=== PATIENT | female | born 1975 | race Hispanic/Latino ===

== ENCOUNTER 2021-08-24 11:33 | Emergency (ER) | payer BC, OTHER ==
[~2021-08-24] VITALS: Ht 157.5 cm; Wt 73.5 kg
[2021-08-24 11:35] VITALS: BP 124/67
[2021-08-24] MEDS ORDERED: DIAZEPAM 5 MG TABLET PO ONE (12:00)
[2021-08-24] MEDS ORDERED: KETOROLAC 60 MG VIAL (30MG/ML) IM ONE (12:00)
[2021-08-24] MEDS ORDERED: HYDROCODONE/ACETAMINOPHEN 10/325 MG TAB PO ONE (12:00)
[2021-08-24 12:31] LABS: APPEARANCE,URINE Clear (CLEAR); BILIRUBIN,URINE Negative (NEGATIVE); COLOR,URINE Yellow (YELLOW); GLUCOSE, URINE (UA) Negative (NEGATIVE); KETONES,URINE Negative (NEGATIVE); LEUKOCYTE ESTERASE ,URINE Moderate (NEGATIVE); NITRATE,URINE Negative (NEGATIVE); OCCULT BLOOD,URINE Negative (NEGATIVE); PROTEIN,URINE Negative (NEGATIVE); UROBILINOGEN,URINE 0.2 mg/dL (0.2-1.0)
[2021-08-24 13:13] LABS: BACTERIA,URINE Rare /HPF (None Seen); SQUAMOUS EPITHELIAL CELL,UR Rare /HPF (0-2)
[2021-08-24 13:14] LABS: RBC,URINE None Seen /HPF (0-1)
[2021-08-24] MEDS ORDERED: CEFTRIAXONE 1G VIAL IM ONE (13:30)
[2021-08-24] MEDS ORDERED: FENTANYL 75 MCG/HR PATCH TD SCH (13:30)
[2021-08-24] MEDS ORDERED: KETO30I IM (13:32)
[2021-08-24] MEDS ORDERED: CEPH500B PO (13:32)
[2021-08-24] MEDS ORDERED: FLUC150T PO (13:32)
[2021-08-24] MEDS ORDERED: LIDOCAINE HCL-MPF 1% 2ML VIAL ONE (13:51)
[2021-08-24] MEDS ORDERED: KETO10 PO (14:55)
[2021-08-29] MEDS ORDERED: CYCL10TA7 PO (10:03)
[2021-08-29] MEDS ORDERED: LEVO75CA5 PO (10:03)
[2021-08-29] MEDS ORDERED: KETO10 PO (10:03)
[2021-08-29] MEDS ORDERED: CEPH500B PO (10:03)
[2021-08-29] MEDS ORDERED: SPIR25TA6 PO (10:03)
== END 2021-08-24 15:42 | disposition home or self-care (01) ==
LOC: EDH 11:33
DX: N39.0 Urinary tract infection, site not specified (principal); N83.209 Unspecified ovarian cyst, unspecified side; Z79.1 Long term (current) use of non-steroidal anti-inflammatories (NSAID); Z88.8 Allergy status to other drugs, medicaments and biological substances; Z90.710 Acquired absence of both cervix and uterus
CPT/HCPCS: 72131; 81001; 87088; 96372 ×2; 99284; J0696; J1885; J3490

== ENCOUNTER 2021-09-01 06:59 | Day surgery (SDC) | payer OTHER ==
[2021-08-28 10:37] LABS: BASOPHILS % (AUTO) 0.6 % (0.0-5.0); HEMATOCRIT 44.7 % (36-48); LYMPHOCYTES % (AUTO) 36.1 % (21.0-51.0); MEAN CORPUSCULAR HEMOGLOBIN 28.3 pg (27.0-33.0); MEAN CORPUSCULAR HGB CONC 31.3 g/dL (32.0-36.0); MEAN CORPUSCULAR VOLUME 90.3 fL (79-99); MONOCYTES % (AUTO) 6.7 % (3.0-13.0); NEUTROPHILS % (AUTO) 53.7 % (40.0-77.0); PLATELET COUNT (AUTO) 275 K/uL (130-400); RED BLOOD CELL COUNT(AUTO) 4.95 MIL/uL (4.00-5.50); RED CELL DISTRIBUTION WIDTH 13.7 % (11.0-15.5); WHITE BLOOD COUNT (AUTO) 11.7 K/uL (4.8-10.8)
[2021-08-29 09:35] VITALS: BP 96/62
[2021-09-01] VITALS (20 sets, daily range): BP systolic 97–121; BP diastolic 53–74
[~2021-09-01] VITALS: Ht 157.5 cm; Wt 74.6 kg
[~2021-09-01 06:59] MED LIST: CALDOLOR 800MG+NS 250ML 250 ML IV SCH; CEPH500B PO; CYCL-309 PO; KETO10 PO; LACTATED RINGERS 1000ML 1,000 ML IV SCH; LEVO75CA5 PO; SPIR25TA6 PO
[2021-09-01] MEDS ORDERED: LIDOCAINE PF 100MG/5ML (2%) SYRINGE 5ML ONE (07:43)
[2021-09-01] MEDS ORDERED: MIDAZOLAM HCL 1 MG/ML 2ML VIAL ONE (07:44)
[2021-09-01] MEDS ORDERED: ONDANSETRON 4MG INJ ONE (07:44)
[2021-09-01] MEDS ORDERED: PROPOFOL 10 MG/ML 20ML VIAL IV ONE (07:45)
[2021-09-01] MEDS ORDERED: FENTANYL CITRATE PF 50 MCG/1 ML 2ML VIAL ONE ×2 (07:45→09:50)
[2021-09-01] MEDS ORDERED: ROCURONIUM 10MG/1ML SYR 10 MG/ML ML ONE (07:45)
[2021-09-01] MEDS: CEFAZOLIN SODIUM 1 GM VIAL IVP SCH ×2 (08:17→08:38)
[2021-09-01] MEDS ORDERED: BUPIVACAINE/PF 0.25% 30ML VIAL IJ ONE (09:06)
[2021-09-01] MEDS ORDERED: MEPERIDINE-PF 25 MG/ML SYG ONE ×2 (09:24→11:15)
[2021-09-01] MEDS ORDERED: DEXAMETHASONE SOD PHOSPHATE 4 MG/ML 1ML VIAL ONE (09:56)
[2021-09-01] MEDS ORDERED: NEOSTIGMINE 5MG/5ML SYR IV ONE (10:23)
[2021-09-01] MEDS ORDERED: GLYCOPYRROLATE 1 MG/5 ML SYRINGE ONE (10:23)
== END 2021-09-01 12:35 | disposition home or self-care (01) ==
LOC: DAH 06:59
PROVIDERS: ATTEND Obstetrics & Gynecology
DX: N83.11 Corpus luteum cyst of right ovary (principal); Z20.822 Contact with and (suspected) exposure to COVID-19; N73.6 Female pelvic peritoneal adhesions (postinfective); N94.89 Other specified conditions associated with female genital organs and menstrual cycle; N80.1 Endometriosis of ovary; Z88.3 Allergy status to other anti-infective agents; Z80.6 Family history of leukemia; Z80.41 Family history of malignant neoplasm of ovary; Z80.42 Family history of malignant neoplasm of prostate; Z80.0 Family history of malignant neoplasm of digestive organs; Z79.899 Other long term (current) drug therapy
CPT/HCPCS: 36415 ×2; 58661; 85025; 86850 ×2; 86900 ×2; 86901 ×2; 87635; A4215; A4221; A4222; A4223; A4344; A4510; A4600; A4649 ×3; A4663; A4930; A6260; C1769 ×2; C9803; J0690; J1100; J1741; J2001; J2175 ×2; J2250; J2405; J2704; J2710; J3010 ×2; J3490 ×2; J7030; J7120 ×2

== ENCOUNTER → 2023-11-10 | Outpatient (CLI) | payer OTHER ==
[~2023-11-10] MED LIST changes: -CALDOLOR 800MG+NS 250ML 250 ML IV SCH; +CEFU500T67 PO; +GADOTERATE MEGLUMINE 10 MMOL/20 ML VIAL IV ONE; -LACTATED RINGERS 1000ML 1,000 ML IV SCH; +ONDA22I PO
== END | disposition home or self-care (01) ==
LOC: RAH 07:55
PROVIDERS: ATTEND Obstetrics & Gynecology
DX: M85.451 Solitary bone cyst, right pelvis (principal); R10.2 Pelvic and perineal pain
CPT/HCPCS: 72197; A9575